=== PATIENT | female | born 2000 | race Caucasian/White ===

== ENCOUNTER 2019-01-20 20:54 | Emergency (ER) | payer BC ==
[~2019-01-20] VITALS: Ht 167.6 cm; Wt 54.8 kg
[2019-01-20 20:57] VITALS: BP 130/60; PULSE 91; RESP 16; Ht 167.6 cm; Wt 54.8 kg
[2019-01-20] MEDS ORDERED: IBUPROFEN 600 MG TAB PO ONE (21:30)
[2019-01-20] MEDS ORDERED: IBUP-1542 PO (22:08)
--- NOTE | 2019-01-20 22:14 | ERD ---
ER Documentation Chief Complaint Chief Complaint pt reports she hit her R elbow on the "funny bone" HPI Patient is a 18-year-old female, who presents the ER for concerns of right elbow pain which started prior to arrival. Patient states she hit her right elbow on metal bed frame prior to arrival. Patient states she cannot bend her arm secondary to pain. Patient has not taken any pain medication. Patient denies any previous fractures or dislocations. Patient is right-hand dominant. ROS All systems reviewed and are negative except as per history of present illness. Medications Home Meds Active Scripts Ibuprofen* (Motrin*) 600 Mg Tab, 600 MG PO Q6, #30 TAB Prov:BOONE BARRIOS PA-C 01/20/19 Allergies Allergies: Coded Allergies: No Known Allergy (Unverified , 03/31/12) PMhx/Soc Medical and Surgical Hx: pt denies Medical Hx, pt denies Surgical Hx History of Surgery: No Anesthesia Reaction: No Hx Neurological Disorder: No Hx Respiratory Disorders: No Hx Cardiac Disorders: No Hx Psychiatric Problems: No Hx Miscellaneous Medical Probl: No (NO KNOWN MEDICAL CONDITION) Hx Alcohol Use: No Hx Substance Use: No Hx Tobacco Use: No Smoking Status: Never smoker FmHx Family History: No diabetes Physical Exam Vitals Vital Signs Date Temp Pulse Resp B/P (MAP) Pulse Ox O2 O2 Flow FiO2 Time Delivery Rate 01/20/19 97.5 91 16 130/60 98 20:57 (83) Physical Exam GENERAL: Well-developed, well-nourished female. Appears in no acute distress. HEAD: Normocephalic, atraumatic. EYES: Pupils are equally reactive bilaterally. EOMs grossly intact. No conjunctival erythema. NECK: Supple. No meningismus. Normal range of motion of the neck. LUNG: Clear to auscultation bilaterally. No rhonchi, wheezing, rales or coarse breath sounds. HEART: Regular rate and rhythm. No murmurs, rubs or gallops. EXTREMITIES: Equal pulses bilaterally. No peripheral clubbing, cyanosis or edema. No unilateral leg swelling. NEUROLOGIC: Alert and oriented. Moving all four extremities without any difficulty. Normal speech. Steady gait. SKIN: Normal color. Warm and dry. No rashes or lesions. RUE: No deformity, erythema, ecchymosis or swelling. Skin intact. No bursal s welling. Decreased active range of motion of the elbow. Normal passive range of motion of the elbow. Tender to palpation over the olecranon. Sensation intact to light touch. Neurovascularly intact. (Able to give thumbs up, make an ok sign, cross digits 2 and 3, thumb to pinky opposition. 2+ RP.) No snuffbox tenderness. Results 24 hrs Current Medications Medications Dose Sig/Valeria Start Time Status Last (Trade) Ordered Route PRN Stop Time Admin Dose Reason Admin Ibuprofen 600 mg ONCE ONCE 01/20/19 DC 01/20/19 (Motrin) PO 21:30 01/20/19 21:18 21:31 Procedures/MDM ED COURSE: The patient was stable throughout ED course. I kept the patient and/or family informed of laboratory and diagnostic imaging results throughout the ED course. DIAGNOSTIC IMAGING: Read by radiologist. DIAGNOSTIC IMAGING REPORT Patient: ELAINE LAW : 2000 Age: 18 Sex: F MR #: [id number] DOS: 01/20/192110 Ordering MD: BOONE BARRIOS PA-C Location: [facility] Room/Bed: PROCEDURE: XR right elbow. CLINICAL INDICATION: Right elbow pain. TECHNIQUE: 4 views. Frontal, lateral, and obliques. COMPARISON: No prior study is available for comparison. FINDINGS: There is no fracture or dislocation. The soft tissues are normal. Articular surfaces are intact. There is no lytic or blastic lesion. There is no radiopaque foreign body. IMPRESSION: 1. Unremarkable images of the right elbow. RPTAT: QQ .Luis Felipe Lentz MD, Date Time Electronically viewed and signed by .Luis Felipe Lentz MD, MD on 01/20/2019 22:03 .R/ CC: BOONE BARRIOS PA-C [id number] PROCEDURES: None. MEDICATIONS GIVEN: Ibuprofen MEDICAL DECISION MAKING: This is a 18-year-old female presents the ER for concerns of elbow pain. Vital signs were reviewed. Patient was afebrile. X-ray imaging was unremarkable. See formal report above. At this time, patient presentation most consistent with an elbow contusion. Low suspicion for elbow dislocation, radial head fracture, olecranon fracture, capitellum fracture, hum erus fracture, septic joint, lateral epicondylitis, medial epicondylitis, olecranon bursitis, biceps tendon rupture, osteomyelitis, rheumatoid arthritis, osteoarthritis or compartment syndrome. PRESCRIPTIONS: Ibuprofen DISCHARGE: At this time, patient is stable for discharge and outpatient management. RICE therapy and ROM exercises were advised to avoid stiffness. I have instructed the patient to follow-up with his/her primary care physician in 1-2 days. I have discussed with the patient the possibility of needing to see an electronics specialist for further workup and imaging if the pain persists. I have instructed the patient to promptly return to the ER for any new or worsening symptoms including increased pain, swelling, redness, warmth or fever. The pa tient and/or family expressed understanding of and agreement with this plan. All questions were answered. Home care instructions were provided. Disclaimer: Inadvertent spelling and grammatical errors are likely due to EHR/dictation software use and do not reflect on the overall quality of patient care. Also, please note that the electronic time recorded on this note does not necessarily reflect the actual time of the patient encounter. Departure Diagnosis: Primary Impression: Elbow pain Laterality: right Qualified Codes: M25.521 - Pain in right elbow Condition: Fair Patient Instructions: Contusion, Elbow Referrals: [facility] YOU HAVE RECEIVED A MEDICAL SCREENING EXAM AND THE RESULTS INDICATE THAT YOU DO NOT HAVE A CONDITION THAT REQUIRES URGENT TREATMENT IN THE EMERGENCY DEPARTMENT. FURTHER EVALUATION AND TREATMENT OF YOUR CONDITION CAN WAIT UNTIL YOU ARE SEEN IN YOUR DOCTORS OFFICE WITHIN THE NEXT 1-2 DAYS. IT IS YOUR RESPONSIBILITY TO MAKE AN APPOINTMENT FOR FOLOW-UP CARE. IF YOU HAVE A PRIMARY DOCTOR --you should call your primary doctor and schedule an appointment IF YOU DO NOT HAVE A PRIMARY DOCTOR YOU CAN CALL OUR PHYSICIAN REFERRAL HOTLINE AT IF YOU CAN NOT AFFORD TO SEE A PHYSICIAN YOU CAN CHOSE FROM THE FOLLOWING [facility] CLINICS [facility] [address] [facility]. [facility] [address] [facility]. [facility] [address] [facility] [address] [facility] [address] [facility]. [facility] [address] [facility]. [facility] YOU HAVE RECEIVED A MEDICAL SCREENING EXAM AND THE RESULTS INDICATE THAT YOU DO NOT HAVE A CONDITION THAT REQUIRES URGENT TREATMENT IN THE EMERGENCY DEPARTMENT. FURTHER EVALUATION AND TREATMENT OF YOUR CONDITION CAN WAIT UNTIL YOU ARE SEEN IN YOUR DOCTORS OFFICE WITHIN THE NEXT 1-2 DAYS. IT IS YOUR RESPONSIBILITY TO MAKE AN APPOINTMENT FOR FOLOW-UP CARE. IF YOU HAVE A PRIMARY DOCTOR --you should call your primary doctor and schedule and appointment IF YOU DO NOT HAVE A PRIMARY DOCTOR YOU CAN CALL OUR PHYSICIAN REFERRAL HOTLINE AT . IF YOU CAN NOT AFFORD TO SEE A PHYSICIAN YOU CAN CHOSE FROM THE FOLLOWING [facility] INSTITUTIONS: [facility] [address] [place] [address] [facility] [address] [place] [address] [facility] [address] [place] [address] Additional Instructions: Call your primary care doctor TOMORROW for an appointment during the next 1-2 days.See the doctor sooner or return here if your condition worsens before your appointment time. BOONE BARRIOS PA-C Jan 20, 2019 22:14
== END 2019-01-20 22:13 | disposition home or self-care (01) ==
LOC: FTE 20:54
DX: M25.521 Pain in right elbow (principal)
CPT/HCPCS: 73080; Z7502; Z7610